=== PATIENT | female | born 1975 | race African-American/Black ===

== ENCOUNTER 2017-07-29 16:05 | Observation (INO) | payer BC ==
[2017-07-29] MEDS ORDERED: VALSARTAN 160 MG TAB PO STA (16:36)
[2017-07-29] MEDS ORDERED: AMLODIPINE 10 MG TAB PO STA (16:36)
[2017-07-29 16:50] VITALS: BMI 29.0
[2017-07-29 17:00] LABS: Absolute Lymphocytes (CBC) 1.2 K/uL (0.7-4.9); Absolute Monocytes 0.6 K/uL (0.1-1.3); Absolute Neutrophil 4.2 K/uL (1.8-8.0); Basophils % 0.6 % (0-1.3); Eosinophils % 2.1 % (0-4.4); Hematocrit 32.2 % (36.0-45.0); Lymphocytes % 19.2 % (15.3-44.8); MCH 23.4 pg (27.0-35.0); MCV 72.4 fL (80-100); MPV 7.3 fL (7.6-11.3); Monocytes % 10.1 % (3.3-12.3); RBC Red Blood Cell Count 4.45 M/uL (3.86-4.86)
[2017-07-29 17:14] LABS: Potassium 3.6 mEq/L (3.6-5.0)
[2017-07-29] MEDS: HYDRALAZINE HCL 20 MG/ML VIAL IV PRN ×2 (17:16→20:46)
[2017-07-29 17:17] LABS: Albumin 3.7 g/dL (3.2-5.5); Bilirubin Total 0.5 mg/dL (0.3-1.2); Protein, Total 7.3 g/dL (6.0-8.3)
[2017-07-29 17:23] LABS: Anisocytosis 2+; Blood Morphology Comment NOTED (NOT SEEN); Platelet Estimate ADEQ; Urine White Blood Cell Casts OK
[2017-07-29 17:45] LABS: Urine Appearance CLEAR; Urine Bilirubin NEGATIVE (NEG); Urine Blood NEGATIVE (NEG); Urine Color YELLOW; Urine Glucose NEGATIVE (NEG); Urine Protein 1+ (NEG); Urine Urobilinogen 0.2 mg/dL (0.2-1.0)
[2017-07-29 17:51] LABS: Urine Microscopic Reflex ORDER UMIC
[2017-07-29 17:57] LABS: Urine Bacteria 20-50 /HPF (<20); Urine Culture Reflex Order NOT NEEDED; Urine RBC <5 /HPF (NONE SEEN)
--- NOTE | 2017-07-29 18:40 | RAD REPORT ---
EXAM DESCRIPTION: MRI - MRA Abdomen W/Wo Cont - 07/29/2017 6:07 pm CLINICAL HISTORY: malignant htn COMPARISON: No comparisons FINDINGS: MR angiography demonstrates normal size and contour of the abdominal aorta and iliac vesse ls. Single bilateral renal arteries are noted with no evidence of ostial or non-ostial renal artery s tenosis. The celiac axis, SMA and MERCY appear likely patent. No worrisome solid organ abnormality is detected on limited T1 and T2 pulse sequences. No bulky adeno chad or free fluid. IMPRESSION: No evidence of ostial or non-ostial renal artery stenosis.
[2017-07-29] MEDS ORDERED: ONDANSETRON 4 MG/2 ML VIAL IV PRN (21:16)
[2017-07-30] MEDS ORDERED: ACETAMINOPHEN 500 MG TAB PO PRN (06:45)
[2017-07-30 11:44] VITALS: TEMP 97.5
[2017-07-30 12:47] VITALS: O2SAT 97
[2017-07-30] MEDS ORDERED: VALSARTAN 160 MG TAB PO ONE (13:04)
[2017-07-30 15:22] VITALS: BP 163/95
--- NOTE | 2017-07-31 00:07 | HP ---
Date of Admission: 07/29/2017 Chief Complaint: Elevated blood pressure. History Of Present Illness: A 42-year-old female who is known to have hypertension who has been taki ng Zestoretic who was brought to the office with persistent elevation of blood pressure. She was fou nd to have blood pressure of 220 systolic and 110 diastolic. In view of such severe hypertension, th e patient was admitted for observation. After she was taken to the hospital, she was found to have b lood pressure of 245/134. The patient denied any headache, shortness of breath, or chest pain. Past Medical History: The patient is known to have history of hypertension. Family History: Hypertension present. Personal History: Allergic to penicillin. Review of Systems: No chest pain. No fever. Physical Examination: General: Revealed a 42-year-old female, fully alert and oriented. HEENT: Negative. Neck: Supple. JVD negative. Chest: Clear. Heart: Regular. Abdomen: Soft. Extremities: No edema. Laboratory: Hemoglobin 10.5, otherwise negative. MRA of renal arteries; no evidence of renal artery stenosis. Assessment: Malignant hypertension. Plan: It is not clear why her blood pressure went up so certainly; however, she admits to missing medicines off and on. However, in view of severity of hypertension, the patient received IV hydral azine. The patient's blood pressure is still high, but it is better today. She does not have any ca rdiovascular symptoms other than headache. Since her blood pressure is reasonable, she will be disch arged on Norvasc. Her Zestoretic will be increased to twice a day and she will be rechecked on in the office. ARMAND/JAZMINE Voice ID: [id number]
[2017-07-31] MEDS ORDERED: AMLODIPINE 10 MG TAB PO ONE (13:05)
== END 2017-07-30 15:00 | disposition home or self-care (01) ==
LOC: 4TH 16:14
PROVIDERS: ADMIT Internal Medicine; ATTEND Internal Medicine
DX: I10 Essential (primary) hypertension (principal); Z88.0 Allergy status to penicillin
CPT/HCPCS: 36415; 80053; 81003; 81015; 85025; 87086; 87088; A9579; C8902; G0378; J0360; J2405

== ENCOUNTER 2017-08-05 16:00 | Observation (INO) | payer BC ==
[2017-08-05 16:36] VITALS: BMI 29.0
[2017-08-05 17:28] LABS: Absolute Lymphocytes (CBC) 1.1 K/uL (0.7-4.9); Absolute Monocytes 0.9 K/uL (0.1-1.3); Absolute Neutrophil 3.7 K/uL (1.8-8.0); Basophils % 0.6 % (0-1.3); Eosinophils % 1.3 % (0-4.4); Hematocrit 39.8 % (36.0-45.0); MCH 22.7 pg (27.0-35.0); MCV 72.4 fL (80-100); MPV 7.3 fL (7.6-11.3); Monocytes % 15.6 % (3.3-12.3)
[2017-08-05 18:09] LABS: Albumin 3.9 g/dL (3.4-5.0); Bilirubin Total 0.4 mg/dL (0.2-1.0); Potassium 3.5 mmol/L (3.5-5.1); Protein, Total 8.8 g/dL (6.4-8.2)
--- NOTE | 2017-08-05 18:46 | RAD REPORT ---
EXAM DESCRIPTION: MRI - Brain Wo Cont - 08/05/2017 6:08 pm CLINICAL HISTORY: CVA COMPARISON: Head Brain Wo Cont dated 09/08/2015; MRA Abdomen W/Wo Cont dated 07/29/2017 TECHNIQUE: Multi-sequence, multiplanar MR imaging of the brain was performed without contrast. FINDINGS: No intracranial hemorrhage, hydrocephalus or extra-axial fluid collections. No edema or sh ift of midline structures. No findings to suspect brain mass. DWI is negative for acute CVA. Midline structures are normally formed. Mastoid air cells and paranasal sinuses are clear. IMPRESSION: No acute or concerning intracranial abnormalities.
[2017-08-05 19:54] LABS: Anisocytosis 1+; Blood Morphology Comment NOTED (NOT SEEN); Platelet Estimate ADEQ
--- NOTE | 2017-08-06 08:17 | RAD REPORT ---
EXAM DESCRIPTION: RAD - Chest Pa And Lat (2 Views) - 08/06/2017 6:46 am CLINICAL HISTORY: htn Chest pain. COMPARISON: Chest Single View dated 09/08/2015 FINDINGS: The lungs are clear. The heart is normal in size. No displaced fractures. IMPRESSION: No acute or concerning finding suspected.
[2017-08-06] MEDS ORDERED: AMLODIPINE 5 MG TAB PO SCH (09:00)
--- NOTE | 2017-08-06 09:47 | RAD REPORT ---
EXAM DESCRIPTION: VAS - CP - 08/06/2017 9:01 am CLINICAL HISTORY: tia CVA COMPARISON: Brain Wo Cont dated 08/05/2017; Head Brain Wo Cont dated 09/08/2015 TECHNIQUE: Real-time sonographic evaluation of both carotid systems was performed. Doppler interroga tion was performed with waveform tracing bilaterally. FINDINGS: Normal high resistance waveforms are noted in both external carotid arteries. The common c arotid arteries and internal carotid arteries show normal low resistance waveforms. Intimal thickening is present bilaterally. No significant plaquing is identified. Peak systolic and e nd diastolic velocity values and the ICA/CCA ratios are in the non-hemodynamically significant range. Antegrade flow seen in both vertebral arteries. IMPRESSION: No significant atherosclerotic changes noted. No evidence of a hemodynamically significant stenosis.
[2017-08-06] MEDS: LISINOPRIL 20 MG TAB PO SCH ×2 (10:58→21:52)
[2017-08-06] MEDS: ASPIRIN EC 81 MG TAB PO SCH (10:58)
--- NOTE | 2017-08-06 15:38 | ECHO ---
HEIGHT: 5 ft 9 in WEIGHT: 197 lb 0 oz DATE OF STUDY: 08/06/[address]: Carl Redding MD 2-DIMENSIONAL: YES M.MODE: YES DOPPLER: YES COLOR FLOW: YES TDS: NO PORTABLE: NO DEFINITY: NO BUBBLE STUDY: NO DIAGNOSIS: LEFT VENTRICULAR HYPERTROPHY CARDIAC HISTORY: CATHERIZATION: NO SURGERY: NO PROSTHETIC VALVE: NO PACEMAKER: NO MEASUREMENTS (cm) DIASTOLIC (NORMALS) SYSTOLIC (NORMALS) IVSd 1.0 (0.6-1.2) LA Diam 3.2 (1.9-4.0) LVEF 69% LVIDd 3.3 (3.5-5.7) LVIDs 2.1 (2.0-3.5) %FS 37% LVPWd 1.2 (0.6-1.2) Ao Diam 2.5 (2.0-3.7) 2 DIMENSIONAL ASSESSMENT: RIGHT ATRIUM: NORMAL LEFT ATRIUM: NORMAL RIGHT VENTRICLE: NORMAL LEFT VENTRICLE: NORMAL TRICUSPID VALVE: NORMAL MITRAL VALVE: NORMAL PULMONIC VALVE: NORMAL AORTIC VALVE: NORMAL PERICARDIAL EFFUSION: NONE AORTIC ROOT: NORMAL LEFT VENTRICULAR WALL MOTION: NORMAL DOPPLER/COLOR FLOW: NORMAL COMMENTS: NORMAL 2D ECHOCARDIOGRAM WITH DOPPLER. NO EVIDENCE OF LEFT VENTRICULAR HYPERTROPHY. NO EFFUSION. TECHNOLOGIST: Marin BANEGAS
--- NOTE | 2017-08-06 19:21 | HP ---
Date of Admission: 08/05/2017 Chief Complaint: Difficulty walking. History Of Present Illness: A 42-year-old female who was having malignant hypertension with a blood pressure of 240/120. Last week she was in the hospital for overnight, where her blood pressure was c ontrolled and she was sent home. She returned for office visit when she started feeling vertigo and dizziness. It was thought that the patient may be reacting to medication. She was sent home for obs ervation. She returned to the office because of continued vertigo and dizziness and inability to wal k. She did not have any focal weakness of the muscles. No history of speech difficulties or other n eurological symptoms as it was not clear whether the patient had a cerebellar stroke. The patient wa s admitted for observation. Past Medical History: Hypertension, otherwise negative. Personal History: Nonsmoker. Home Medicines: Zestoretic, amlodipine. Review of Systems: No chest pain or shortness of breath. Physical Examination: General: Revealed a 42-year-old female. 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 She has not been driving because of this. She has been getting help of the family to walk inside the house. The patient's neurological exam was done in the office. She did not have any focal motor deficit. However, she had severe vertigo and dizziness with ambulation. Neck: No JVD. Carotid, no bruit. Chest: Clear. Heart: Regular. Abdomen: Soft. Extremities: No edema. Laboratory Data: Hemoglobin 12.5, normal platelet count, elevated globulin, sedimentation rate of 27 . MRI of the head negative for any stroke or tumor. Assessment: 1.Severe vertigo and dizziness. 2.Recent accelerated hypertension. Plan: The patient is scheduled for carotid study and few other tests. It is not clear what elevated globulin means in this setting. The patient had a normal globulin last week; however, a protein gorge ctrophoresis will be ordered. The patient also is due to be seen by Neurology Service to see what el se needs to be done in this clinical setting. Meanwhile, her lisinopril and Norvasc will be restarted. RRK/MODL Voice ID: [id number]
[2017-08-06 20:17] LABS: Absolute Lymphocytes (CBC) 1.5 K/uL (0.7-4.9); Absolute Monocytes 0.8 K/uL (0.1-1.3); Absolute Neutrophil 2.7 K/uL (1.8-8.0); Eosinophils % 2.6 % (0-4.4); Hematocrit 36.9 % (36.0-45.0); Lymphocytes % 29.2 % (15.3-44.8); MCH 22.9 pg (27.0-35.0); MCV 72.7 fL (80-100); MPV 7.4 fL (7.6-11.3); Monocytes % 14.9 % (3.3-12.3); RBC Red Blood Cell Count 5.07 M/uL (3.86-4.86)
[2017-08-06 20:33] LABS: Albumin 3.4 g/dL (3.4-5.0); Bilirubin Total 0.3 mg/dL (0.2-1.0); Potassium 3.5 mmol/L (3.5-5.1); Protein, Total 8.3 g/dL (6.4-8.2)
[2017-08-06] MEDS ORDERED: MECLIZINE HCL 12.5 MG TAB PO SCH (21:15)
[2017-08-06] MEDS ORDERED: THIAMINE 200 MG/2 ML INJ IVP ONE (22:00)
--- NOTE | 2017-08-07 03:37 | CON ---
Date of Consultation: 08/06/2017 Time Seen: 2100. Reason: Gait difficulties. History: A 42-year-old lady who just recently left the hospital with malignant hypertension. Antihy pertensives were added and adjusted. Since then, the patient has been noticing unsteadiness on her f eet and a sensation of nausea when she stands with some associated bending and twisting. She has sta rted breaking the medication into smaller doses and taking it more frequently, but it did not resolve the symptoms. Her primary care physician, who was concerned the patient may have been having issues with posterior fossa ischemia, wisely admitted the patient for observation because she had an enlarg ed cerebellar infarct. Fortunately, brain MRI demonstrates no evidence of stroke, but unfortunately the patient continues to be symptomatic with prominent gait instability and nausea. It is not really positional or provoked by head movement. Standard labs are unrevealing. An MRI likewise unremarkab le. Carotid Doppler; no stenosis. Echocardiogram; normal. Chest x-ray; normal. Consultation was r equested. Past Medical History: Hypertension. Medications: Routinely Norvasc, iron, lisinopril, hydrochlorothiazide. Now she is to stop lisinopri l and aspirin. Allergies: PENICILLIN. Social History: Employed. Normally independent with activities of daily living. Family History: Noncontributory. Review of Systems: General: General good health. Eyes: Denies. Ears, Nose, Throat: No dysarthria. Cardiovascular: Hypertension. Pulmonary: Negative. GI: Negative. : Negative. Musculoskeletal: Negative. Neurologic: As noted. Psychiatric: Negative. Endocrine: Negative. Physical Examination: Vital Signs: On exam, she is afebrile. Vitals are stable. There is not any orthostasis. Blood pre ssure actually increases from lying to standing with the increase in heart rate as well, 188/77 of ly ing. Pupils reactive. Ocular motion full without nystagmus. Hallpike negative bilaterally. Visual august full. Facial strength and sensation normal. Tongue protrudes evenly. Soft palate elevates symmetrically bilaterally. Extremity strength full. Sensation intact. Reflexes well-preserved, 2/4 , symmetric. Toes are downgoing. Gait is very unsteady and wide-based. The patient has difficulty ambulating without moderate assistance. Impression: Vertigo, Hallpike is negative, not labyrinthine problems, really not positional. Even t burak the patient does not describe tinnitus or aural fullness, she may have a mild viral labyrinthit is. There is no evidence for stroke. Plan: We will check a B12 and a sedimentation rate. Give IV thiamine and p.o. meclizine before bed. Thank you for the consult. We will continue to follow with you. CATRACHO Voice ID: [id number] Report ID: [id number]
[2017-08-07 05:29] LABS: Thyroid Stimulating Hormone 2.84 uIU/mL (0.36-3.74)
[2017-08-07] MEDS: LISINOPRIL 20 MG TAB PO SCH (09:00)
[2017-08-07 09:25] VITALS: TEMP 97.5
[2017-08-07] MEDS: ASPIRIN EC 81 MG TAB PO SCH (10:43)
[2017-08-07 11:31] VITALS: O2SAT 97
[2017-08-07 11:35] VITALS: BP 122/84
[2017-08-07] MEDS ORDERED: MECLIZINE HCL 12.5 MG TAB PO SCH (21:00)
[2017-08-09 22:09] LABS: Albumin, (SPE) 3.7 g/dL (3.8-4.8); Alpha-1-Globulins 0.4 g/dL (0.2-0.3); Alpha-2-Globulins 0.9 g/dL (0.5-0.9); Gamma Globulins 1.4 g/dL (0.8-1.7); INTERPRETATION REPORT
== END 2017-08-07 11:37 | disposition home or self-care (01) ==
LOC: 4TH 16:18
PROVIDERS: ADMIT Internal Medicine; ATTEND Internal Medicine
DX: R42 Dizziness and giddiness (principal); I10 Essential (primary) hypertension; Z88.0 Allergy status to penicillin
CPT/HCPCS: 36415; 70551; 71046; 80053; 80061; 82607; 84165; 84443; 85025; 85652; 93306; 93880; 97163; G0378; J3411

== ENCOUNTER 2017-08-26 14:41 | Observation (INO) | payer BC ==
[2017-08-26 16:27] VITALS: BMI 28.0
[2017-08-26 18:25] LABS: Absolute Lymphocytes (CBC) 1.6 K/uL (0.7-4.9); Absolute Monocytes 0.8 K/uL (0.1-1.3); Absolute Neutrophil 4.3 K/uL (1.8-8.0); Basophils % 1.5 % (0-1.3); Eosinophils % 2.1 % (0-4.4); Hematocrit 33.2 % (36.0-45.0); Lymphocytes % 23.2 % (15.3-44.8); MCH 23.9 pg (27.0-35.0); MCV 73.9 fL (80-100); MPV 7.3 fL (7.6-11.3); Monocytes % 11.5 % (3.3-12.3)
[2017-08-26 18:52] LABS: Albumin 3.3 g/dL (3.4-5.0); Bilirubin Total 0.3 mg/dL (0.2-1.0); Potassium 3.5 mmol/L (3.5-5.1); Protein, Total 7.7 g/dL (6.4-8.2)
[2017-08-26 19:10] LABS: Anisocytosis 1+; Blood Morphology Comment NOTED (NOT SEEN); Ovalocytes 2+; Platelet Estimate ADEQ; Urine White Blood Cell Casts OK
[2017-08-26 19:22] LABS: RPR Titer ND
[2017-08-26 19:31] LABS: Urine Appearance CLOUDY; Urine Bilirubin NEGATIVE (NEG); Urine Blood NEGATIVE (NEG); Urine Color YELLOW; Urine Glucose NEGATIVE (NEG); Urine Protein TRACE (NEG); Urine Specific Gravity 1.015 (1.005-1.030); Urine Urobilinogen 0.2 mg/dL (0.2-1.0)
[2017-08-26 19:35] LABS: Urine Microscopic Reflex ORDER UMIC
[2017-08-26 20:27] LABS: Urine Amorphous Sediment 1+ /HPF (NONE SEEN); Urine Bacteria <20 /HPF (<20); Urine Culture Reflex Order REFLEXED; Urine Mucus SLIGHT /HPF (NONE SEEN); Urine RBC <5 /HPF (NONE SEEN)
[2017-08-26 21:02] LABS: RPR (Rapid Plasma Reagin) NON-REACT (NON-REACT)
--- NOTE | 2017-08-26 21:27 | RAD REPORT ---
EXAM DESCRIPTION: MRI - Brain Wo Cont - 08/26/2017 8:55 pm CLINICAL HISTORY: Vertigo, weakness, headache, dizziness COMPARISON: MRI August 05 TECHNIQUE: Sagittal T1-weighted images were obtained along with axial PD, heavily T2-weighted and T2 -FLAIR images. Axial DWI and ADC mapping sequences were also obtained along with coronal heavily T2-w eighted images. FINDINGS: No intracranial hemorrhage, mass or acute infarction. There is no edema or shift of midlin e structures. No extra-axial fluid collections. Vazquez-matter/white matter junction is preserved. Signa l voids are seen as a normal finding in the major intracranial vessels. No new intracranial findings. Empty sella configuration is seen. No sella or supra sella mass. No tonsillar ectopia. Mastoid air cells and paranasal sinuses are clear. IMPRESSION: Negative non-contrast MRI of the Brain for acute finding. No new finding since August 05 examination
[2017-08-26 23:37] VITALS: O2SAT 96
--- NOTE | 2017-08-26 23:43 | CON ---
Reason: Vertigo. History: A 42-year-old lady whom I had seen in the hospital last month with a fairly similar symptom complex. Workup was unremarkable. Brain MRI normal. Labs normal. Given some thiamine and meclizi ne and problem improved slightly, enough for her to be safely discharged, but since being discharged, she has continued to have intermittent episodes of vertigo with a sensation of the room twisting and spinning or the room being tilted as well as very prominent fatigue. 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 Past Medical History: Hypertension. Routine Medications: Multivitamin, lisinopril, HCTZ, iron. Allergies: PENICILLIN. Social History: Does not smoke, employed, normally independent activities of daily living. Family History: Noncontributory. Review of Systems: General: Good health. Eyes: Denies. Ears, Nose, Throat: Negative. Cardiovascular: Hypertension. Pulmonary: Negative. GI: Negative. : Negative. Musculoskeletal: Negative. Neurologic: As noted. Psychiatric: Negative. Endocrine: Negative. Hematologic: Negative. Physical Examination: Vital Signs: On exam, she is afebrile. Vitals are stable. General: She is awake, alert, oriented to time, person, place, and situation. HEENT: Pupils equal, round, reactive. Ocular motion full without nystagmus. Visual august are full to confrontation bilaterally. Hallpike negative. Neck: Supple. Extremity: Strength full. Sensation intact. Reflexes 2/4, symmetric. Toes are downgoing. No fing rq-[id number]-eosfrp ataxia. Gait is wide based and unsteady. Pertinent Laboratory Data: All labs pending this admission. B12 last admission 347. Thyroid 2.8. Protein electrophoresis negative. Sedimentation rate 27. Creatinine 1.4. Brain MRI normal, study p ersonally reviewed. Chest x-ray, normal. Carotid Doppler, no stenosis. Abdominal MRI, , no renal a rtery stenosis. The patient does have a tortuous vertebrobasilar system on personal review of the [facility] MRI from last admission. Plan: We will repeat brain MRI. Check a [place], a B6 level. Additional labs as stated are pendi ng. Check an RPR, YA, JIMENEZ level. Thank you for the consult. We will continue to follow with you. CATRACHO Voice ID: [id number] Report ID: [id number]
[2017-08-27] MEDS ORDERED: HOME MED 1 EA UNK (Lisinopril/Hydrochlorothiazide [Lisinopril-Hctz 20-12.5 Mg Tab] 1 TAB) PO SCH (09:00)
[2017-08-27] MEDS ORDERED: hydroCHLOROthiazide 12.5 MG CAP PO SCH (09:00)
[2017-08-27] MEDS ORDERED: LISINOPRIL 20 MG TAB PO SCH (09:00)
[2017-08-27 21:04] VITALS: BP 146/95; TEMP 98.5
--- NOTE | 2017-08-28 03:07 | HP ---
Date of Admission: 08/26/2017 Chief Complaint: Persistent dizziness, difficulty with ambulation. History Of Present Illness: A 42-year-old female, was brought to the office with dizziness, unable t o ambulate. The patient could not walk in the room or hallways. In view of this, the patient is pre -admitted for further workup. This patient was in the hospital before once for uncontrolled hyperten kaylee, second time for severe vertigo and dizziness for which she had extensive workup. Dr. Reyes saw the patient and we thought that the patient probably had labyrinthitis. The patient currently denie s any other symptoms. No focal symptoms. Past Medical History: Positive for hypertension. Personal History: Nonsmoker. Home Medicines: Zestoretic. Review of Systems: No history of fever, chills, rigors. Physical Examination: General: A 42-year-old female, unable to stand without losing balance. HEENT: Otherwise negative. Neck: Supple. JVD negative. Chest: Clear. Heart: Regular. Abdomen: Soft. Extremities: No edema. Neurological: Negative. Laboratory: Essentially negative. Imaging: MRI repeat done during current admission showed no positive findings. Assessment: 1.Persistent and recurrent vertigo and dizziness. 2.Hypertension. Plan: It is not clear whether there is some unusual reason for her symptoms. Dr. Reyes has ordered some more workup pending that she will be given her regular blood pressure medicines and she will be monitored. ARMAND/JAZMINE Voice ID: [id number]
== END 2017-08-27 22:00 | disposition home or self-care (01) ==
LOC: 2ND 15:29
PROVIDERS: ADMIT Internal Medicine; ATTEND Internal Medicine
DX: R42 Dizziness and giddiness (principal); I10 Essential (primary) hypertension; Z88.0 Allergy status to penicillin
CPT/HCPCS: 36415; 70551; 80053; 81003; 81015; 82164; 85025; 85652; 86038; 86592; 87086; 87088; G0378